=== PATIENT | female | born 1980 | race Caucasian/White ===

== ENCOUNTER 2018-04-06 07:32 | Outpatient (CLI) | payer OTHER ==
[2018-04-06] MEDS ORDERED: IOVERSOL 320 50 ML VIAL ONE (07:45)
[2018-04-06] MEDS ORDERED: IOVERSOL 320 100 ML VIAL IVP ONE ×2 (07:45→09:23)
[2018-04-06] MEDS ORDERED: IOVERSOL 320 50 ML VIAL PO ONE (09:23)
--- NOTE | 2018-04-06 13:37 | CT Report ---
Reason: RECTAL MASS Procedure Date: 04/06/2018 Accession Number: [id number] / [id number] Procedure: CT - Abdomen/Pelvis W/ CPT Code: FULL RESULT: EXAM: CT ABDOMEN AND PELVIS EXAM DATE: 04/06/2018 09:04 AM. CLINICAL HISTORY: Rectal mass. COMPARISONS: None. TECHNIQUE: Routine helical CT imaging was performed through the abdomen and pelvis. IV contrast: OPTI 320 100mL. Enteric contrast: Yes. Reconstructions: Coronal and sagittal. In accordance with CT protocol optimization, one or more of the following dose reduction techniques were utilized for this exam: automated exposure control, adjustment of mA and/or KV based on patient size, or use of iterative reconstructive technique. FINDINGS: Lung Bases: CT chest dictated separately Liver: Normal. No masses. Gallbladder/Bile Ducts: Unremarkable. Spleen: Unremarkable Pancreas: Unremarkable Adrenal Glands: Unremarkable Right kidney: Normal. No stones. No masses or hydronephrosis. Left kidney: Lower pole scarring/volume loss with staghorn type calculus and adjacent stone filling the lower pole calyces and infundibulum measuring up to 2.1 cm, series 5 image 29. No additional kidney stones outside of lower pole. Mild pelvocaliectasis. No ureter dilation or ureter stone. Otherwise unremarkable. Peritoneal Cavity/Bowel: No bowel obstruction. No free fluid or free air. Appendix normal in appearance. No enteric contrast is seen in the distal sigmoid colon or rectum. Pelvic Organs: Rectal wall thickening and nodularity greatest posterior to the left involving mid to upper aspect of rectum. Mass extension into the mesorectal fat is seen associated with posterior rectal wall thickening, series 3 image 56 sagittal images 28-30. Abnormal soft tissue extends to the posterior margin of the mesorectal fascia with possible extension to involve presacral musculature, series 3 image 54. Nodularity/mass in the mesorectal space posterior on the left measures 3.1 x 2.1 x 1.9 cm, series 3 image 54 and sagittal image 29. Lymph nodes are seen in the pelvis including right internal iliac node 1.5 x 1.2 cm series 3 image 57. Vasculature: No aneurysms or other significant abnormality. Bones: No bone lesions suspicious for metastasis. No significant abnormality. Other: None. IMPRESSION: 1. Rectal wall nodularity. Margins of rectal mass are suboptimally delineated on current study without enteric contrast in the distal sigmoid colon and rectum. 2. Rectal wall nodularity with abnormal soft tissue mass extension posterior and to the left of rectum into the mesorectal space. Probable extension through mesorectal fascia is seen in this area with absence of a clear fascial/fat plane perirectal mass from presacral musculature. 3. Pelvic fiorella enlargement suspicious for neoplasm. No additional abdominal findings suspicious for hematogenous or intraperitoneal spread of neoplasm. 4. If indicated clinically, a more complete assessment of primary tumor and local mass extension could also be considered with rectal protocol enhanced and unenhanced pelvic MRI. 5. CT chest dictated separately. RADIA
--- NOTE | 2018-04-06 13:38 | CT Report ---
Reason: RECTAL MASS Procedure Date: 04/06/2018 Accession Number: [id number] / [id number] Procedure: CT - Chest W/ CPT Code: FULL RESULT: EXAM: CT CHEST EXAM DATE: 04/06/2018 09:04 AM. CLINICAL HISTORY: Rectal mass COMPARISONS: None. TECHNIQUE: Routine helical CT imaging was performed through the chest. IV contrast: 100 mL of Optiray 320. Reconstructions: Coronal and sagittal. Axial MIP lung nodule protocol reformats In accordance with CT protocol optimization, one or more of the following dose reduction techniques were utilized for this exam: automated exposure control, adjustment of mA and/or KV based on patient size, or use of iterative reconstructive technique. FINDINGS: Lungs/Pleura: No nodules, bronchial thickening, consolidation, or edema. Pulmonary vasculature is normal. No pericardial or pleural effusion. No pneumothorax. Mediastinum: Normal. No adenopathy or masses. The heart and great vessels are normal. Bones: Unremarkable. No bone lesion suspicious for metastasis. Visualized Abdomen: CT abdomen and pelvis dictated separately Other: None. IMPRESSION: 1. No finding suspicious for metastasis in the chest. 2. No acute abnormality seen. Exam as detailed above. CT abdomen and pelvis dictated separately. RADIA
== END 2018-04-06 07:33 | disposition home or self-care (01) ==
LOC: DI 07:32
PROVIDERS: ATTEND Internal Medicine Gastroenterology
DX: K62.89 Other specified diseases of anus and rectum (principal); R59.0 Localized enlarged lymph nodes
CPT/HCPCS: 71260; 74177; Q9967

== ENCOUNTER 2019-06-16 13:52 | Emergency (ER) | payer OTHER ==
--- NOTE | 2019-06-16 14:19 | ED Physician Documentation ---
PD HPI ABD PAIN - Stated complaint Stated Complaint: ABD PX - History obtained from History obtained from: Patient (This is a very pleasant 39-year-old woman who had stage III rectal cancer with adjuvant radiation and chemotherapy. On April 21 she had her ileostomy reversed and was doing very well. The surgery was done at [facility]. Today she developed wavelike crampy abdominal pain that is central and more to the left. She had a fairly normal bowel movement for her, noting that her bowel movements are usually loose since the surgery, at 3 AM. She is not nauseous.) Review of Systems Ten Systems: 10 systems reviewed and negative Constitutional: denies: Fever, Chills Cardiac: denies: Chest pain / pressure, Palpitations Respiratory: denies: Dyspnea, Cough GI: reports: Abdominal Pain. denies: Abdominal Swelling, Nausea PD PAST MEDICAL HISTORY - Past Medical History Past Medical History: Yes GI: Other (Rectal cancer) - Past Surgical History Past Surgical History: Yes General: Other (Rectal cancer with ileostomy and subsequent reversal) - Present Medications Home Medications: Ambulatory Orders Medication Instructions Recorded Confirmed DULoxetine [Cymbalta] 40 mg PO DAILY 06/16/19 06/16/19 Lactulose [Constulose] 10 gm PO TID #150 ml 06/16/19 Oxycodone HCl 5 mg PO Q4H PRN #100 ml 06/16/19 - Allergies Allergies/Adverse Reactions: Allergies Allergy/AdvReac Type Severity Reaction Status Date / Time No Known Drug Allergies Allergy Verified 06/16/19 14:16 - Living Situation Living Situation: reports: With spouse/s.o. - Social History Does the pt smoke?: No - Family History Family history: reports: Non contributory PD ED PE NORMAL - Vitals Vital signs reviewed: Yes - General General: Alert and oriented X 3, No acute distress - HEENT HEENT: PERRL, EOMI, Dentition benign - Neck Neck: Supple, no meningeal sign, No bony TTP - Cardiac Cardiac: RRR, No murmur - Respiratory Respiratory: No respiratory distress, Clear bilaterally - Abdomen Abdomen: Normal bowel sounds, Soft, Non tender - Back Back: No CVA TTP, No spinal TTP - Extremities Extremities: No edema, No calf tenderness / cord - Neuro Neuro: Alert and oriented X 3, Normal speech - Psych Psych: Normal mood, Normal affect Results - Vitals Vitals: Vital Signs - 24 hr 06/16/19 06/16/19 06/16/19 14:17 14:22 16:22 Temperature 37.1 C Heart Rate 111 H 110 H 85 Respiratory 18 16 16 Rate Blood Pressure 140/88 H 138/74 H 129/74 O2 Saturation 97 100 100 06/16/19 16:50 Temperature 37.1 C Heart Rate 99 Respiratory 16 Rate Blood Pressure 136/87 H O2 Saturation 97 Oxygen O2 Source Room air - Labs Labs: Laboratory Tests 06/16/19 06/16/19 06/16/19 14:20 14:30 14:30 WBC 5.9 RBC 4.48 Hgb 13.8 Hct 41.1 MCV 91.7 MCH 30.8 MCHC 33.6 RDW 13.5 Plt Count 315 MPV 10.0 Neut # (Auto) 4.5 Lymph # (Auto) 0.6 L [place] # (Auto) 0.6 Eos # (Auto) 0.2 Baso # (Auto) 0.0 Absolute Nucleated RBC 0.00 Nucleated RBC % 0.0 Sodium 138 Potassium 3.9 Chloride 103 Carbon Dioxide 23 Anion Gap 12.0 BUN 11 Creatinine 0.5 Estimated GFR (MDRD) 137 Glucose 100 Calcium 9.6 Total Bilirubin 0.7 AST 18 ALT 17 Alkaline Phosphatase 126 H Total Protein 7.3 Albumin 4.5 Globulin 2.8 Albumin/Globulin Ratio 1.6 Lipase 24 Urine Color YELLOW Urine Clarity SL. CLOUDY Urine pH 7.5 Ur Specific [place] 1.020 Urine Protein TRACE Urine Glucose (UA) NEGATIVE Urine Ketones NEGATIVE Urine Occult Blood TRACE-INTA Urine Nitrite NEGATIVE Urine Bilirubin NEGATIVE Urine Urobilinogen 0.2 (NORMAL) Ur Leukocyte Esterase SMALL H Urine RBC 0-5 Urine WBC >25 H Ur Squamous Epith Cells RARE Squamous Urine Bacteria Rare Ur Microscopic Review INDICATED Urine Culture Comments INDICATED Urine HCG, Qual NEGATIVE - Rads (name of study) Ct A/P Radiology: EMP read contemporaneously (Rectal surgery and anastomosis with mildly dilated small bowel suspicious for a low-grade partial distal small bowel obstruction, mild constipation and stool, trace free fluid.) PD MEDICAL DECISION MAKING - ED course ED course: 39-year-old woman status post ileostomy reversal presents with acute abdominal pain. Labs look fine, CT results as shown with probably a low-grade distal partial small bowel obstruction. Discussed with patient recommended hospitalization. She very much wanted to go home. We settled on close watchful waiting at home with a clear liquid diet and return quickly if worsening or not improving. Departure - Departure Disposition: 01 Home, Self Care Clinical Impression: Small bowel obstruction Condition: Good Record reviewed to determine appropriate education?: Yes Instructions: Ileus Prescriptions: Lactulose [Constulose] 10 gm PO TID #150 ml Oxycodone HCl 5 mg PO Q4H PRN #100 ml PRN Reason: Pain Comments: As discussed, it looks like you have an early/partial mild bowel obstruction. You can have sips of clear fluid, making sure not to take much at any time. Return if you develop nausea. It is important to keep your bowels loose and regular so I am also prescribing a laxative for the next few days. Return in 24 hours if not improving, anytime if you develop nausea or vomiting, fevers, or other new or worsening symptoms. It would be hunter to follow-up with your surgeon in follow-up as well.
[2019-06-16] MEDS ORDERED: IOVERSOL 320 100 ML VIAL IVP ONE (14:30)
[2019-06-16] MEDS ORDERED: IOVERSOL 320 50 ML VIAL ONE (14:30)
[2019-06-16 14:33] LABS: BILIRUBIN,URINE NEGATIVE (NEGATIVE); GLUCOSE, URINE (UA) NEGATIVE (NEGATIVE); KETONES,URINE (UA) NEGATIVE (NEGATIVE); LEUKOCYTE ESTERASE, URINE SMALL (NEGATIVE); NITRITE,URINE NEGATIVE (NEGATIVE); OCCULT BLOOD,URINE TRACE-INTA (NEGATIVE); PH,URINE 7.5 PH (5.0-7.5); PROTEIN,URINE TRACE mg/dL (NEGATIVE); UROBILINOGEN,URINE 0.2 (NORMAL) E.U./dL (NORMAL)
[2019-06-16] MEDS: SODIUM CHLORIDE 0.9% 1,000 ML IV ONE (14:33)
[2019-06-16] MEDS: ONDANSETRON 4 MG/2 ML VIAL IVP STA (14:33)
[2019-06-16] MEDS: HYDROmorphone 1 MG/ML CARPUJECT IVP STA ×2 (14:33→17:34)
[2019-06-16 14:36] LABS: CLARITY,URINE SL. CLOUDY (CLEAR); HCG UR QUAL NEGATIVE
[2019-06-16 14:46] LABS: BACTERIA,URINE Rare /HPF (None Seen); RBC,URINE 0-5 /HPF (0-5); SQUAMOUS EPITHELIAL CELL,UR RARE Squamous (<= Few)
[2019-06-16 14:55] LABS: BASOPHILS % (AUTO) 0.5 %; EOSINOPHILS # (AUTO) 0.2 10^3/uL (0.0-0.7); EOSINOPHILS % (AUTO) 3.2 %; HGB - HEMOGLOBIN 13.8 g/dL (12.0-16.0); LYMPHOCYTES # (AUTO) 0.6 10^3/uL (1.5-3.5); LYMPHOCYTES % (AUTO) 10.2 %; MEAN CORPUSCULAR HEMOGLOBIN 30.8 pg (27.0-31.0); MEAN CORPUSCULAR HGB CONC 33.6 g/dL (32.0-36.0); MEAN CORPUSCULAR VOLUME 91.7 fL (81.0-99.0); MONOCYTES # (AUTO) 0.6 10^3/uL (0.0-1.0); MONOCYTES % (AUTO) 9.4 %; NEUTROPHILS # (AUTO) 4.5 10^3/uL (1.5-6.6); NEUTROPHILS % (AUTO) 76.4 %; PLT - PLATELET COUNT 315 10^3/uL (130-450); RED BLOOD COUNT 4.48 10^6/uL (4.20-5.40); RED CELL DISTRIBUTION WIDTH 13.5 % (12.0-15.0); WHITE BLOOD COUNT 5.9 x10^3/uL (4.8-10.8)
[2019-06-16 15:08] LABS: ALBUMIN 4.5 g/dL (3.2-5.5); ALBUMIN/GLOBULIN RATIO 1.6 (1.0-2.2); BILIRUBIN,TOTAL 0.7 mg/dL (0.2-1.0); CALCIUM 9.6 mg/dL (8.5-10.3); CREATININE 0.5 mg/dL (0.4-1.0); TOTAL PROTEIN 7.3 g/dL (6.7-8.2)
[2019-06-16] MEDS: IOVERSOL 320 100 ML VIAL IVP ONE (15:51)
[2019-06-16] MEDS: IOVERSOL 320 50 ML VIAL PO ONE (15:52)
--- NOTE | 2019-06-16 17:10 | CT Report ---
Reason: IV and PO, post op abd pain Procedure Date: 06/16/2019 Accession Number: [id number] / [id number] Procedure: CT - Abdomen/Pelvis W CPT Code: Final Report FULL RESULT: EXAM: CT ABDOMEN AND PELVIS EXAM DATE: 06/16/2019 03:48 PM. CLINICAL HISTORY: Rectal cancer. Recent ileostomy reversal. Left lower quadrant abdominal pain. COMPARISONS: 04/06/2018. TECHNIQUE: Routine helical CT imaging was performed through the abdomen and pelvis. IV contrast: 100 cc Optiray 320 IV. Enteric contrast: Yes. Reconstructions: Coronal and sagittal. In accordance with CT protocol optimization, one or more of the following dose reduction techniques were utilized for this exam: automated exposure control, adjustment of mA and/or KV based on patient size, or use of iterative reconstructive technique. FINDINGS: Lung Bases: Unremarkable. Liver: There is a hypodense lesion in the central aspect of segment 4 of the liver measuring 15 mm in diameter which is unchanged in size. There is no new liver lesion. No intrahepatic biliary dilation. Gallbladder/Bile Ducts: Unremarkable. Spleen: Normal. Pancreas: Normal. Adrenal Glands: Normal. Kidneys: There are parenchymal calcifications in the inferior pole of the left kidney with localized volume loss. There is mild pelviectasis of the left kidney. Right kidney appears unremarkable. No visualized obstructing ureteral stones. Peritoneal Cavity/Bowel: There is oral contrast within the stomach and small bowel. There are loops of small bowel which are dilated and measure up to 30 mm in diameter. There are findings of surgery near the terminal ileum. There is an anastomosis at the rectum. There is fecalization of distal small bowel contents. There is fat stranding and increased fat attenuation posterior to the rectum. No abscess or free air. There is trace free fluid in the left lower quadrant. Pelvic Organs: Urinary bladder is unremarkable. Uterus normal in size. Ovaries not well visualized. There is increased stool present within the colon without colonic dilation. Vasculature: No aneurysms or other significant abnormality. Bones: No significant abnormality. Other: None. IMPRESSION: 1. New findings of rectal surgery and anastomosis. New pre-sacrococcygeal stranding which may represent postoperative change of granulation tissue, old hematoma, fibrosis, not excluding residual or recurrent neoplasm. 2. Mildly dilated small bowel with fecalization of distal ileum. Suspicious for a low-grade partial distal small bowel obstruction. 3. Mild constipation and increased colonic stool. 4. Trace free fluid in the left abdomen. 5. Chronic findings of multiple parenchymal calcifications in the left kidney. RADIA
[2019-06-16] MEDS: DEXTROSE 5%-0.9% NACL 1,000 ML IV ONE (17:35)
[2019-06-16 18:14] VITALS: BP 126/78
== END 2019-06-16 18:14 | disposition home or self-care (01) ==
LOC: ED 13:52
DX: K56.600 Partial intestinal obstruction, unspecified as to cause (principal); C20 Malignant neoplasm of rectum; Z98.0 Intestinal bypass and anastomosis status
CPT/HCPCS: 36415; 74177; 80053; 81001; 81025; 83690; 85025; 87086; 96361; 96374; 96376; 99284; J1170; Q9967; 81003

== ENCOUNTER 2019-07-07 18:53 | Emergency (ER) | payer OTHER ==
[2019-07-07 19:24] LABS: BASOPHILS % (AUTO) 0.3 %; EOSINOPHILS # (AUTO) 0.2 10^3/uL (0.0-0.7); EOSINOPHILS % (AUTO) 2.3 %; HGB - HEMOGLOBIN 13.6 g/dL (12.0-16.0); LYMPHOCYTES # (AUTO) 1.3 10^3/uL (1.5-3.5); LYMPHOCYTES % (AUTO) 16.3 %; MEAN CORPUSCULAR HEMOGLOBIN 29.8 pg (27.0-31.0); MEAN CORPUSCULAR HGB CONC 33.4 g/dL (32.0-36.0); MEAN CORPUSCULAR VOLUME 89.3 fL (81.0-99.0); MEAN PLATELET VOLUME 9.9 fL (7.9-10.8); MONOCYTES # (AUTO) 0.6 10^3/uL (0.0-1.0); MONOCYTES % (AUTO) 7.5 %; NEUTROPHILS # (AUTO) 5.7 10^3/uL (1.5-6.6); NEUTROPHILS % (AUTO) 73.2 %; PLT - PLATELET COUNT 338 10^3/uL (130-450); RED BLOOD COUNT 4.56 10^6/uL (4.20-5.40); RED CELL DISTRIBUTION WIDTH 13.4 % (12.0-15.0); WHITE BLOOD COUNT 7.8 x10^3/uL (4.8-10.8)
[2019-07-07 19:27] LABS: ALBUMIN 4.5 g/dL (3.2-5.5); ALBUMIN/GLOBULIN RATIO 1.3 (1.0-2.2); BILIRUBIN,TOTAL 0.6 mg/dL (0.2-1.0); CALCIUM 10.3 mg/dL (8.5-10.3); CREATININE 0.5 mg/dL (0.4-1.0)
--- NOTE | 2019-07-07 19:27 | ED Physician Documentation ---
PD HPI ABD PAIN - Stated complaint Stated Complaint: ABD PX - Chief complaint Chief Complaint: Abd Pain - History obtained from History obtained from: Patient (This is a very pleasant young woman with history of stage III rectal cancer with adjuvant radiation and chemotherapy. In March of this year she had her ileostomy reversed at [place]. Today she developed abdominal pain, she had a very small bowel movement this morning. She was seen for similar issue a few weeks ago and was diagnosed with a partial small bowel obstruction. She was sent home on liquid diet and did well and the pain was gone the next day. This is similar although the pain is in a slightly different Area. She has not been vomiting.) Review of Systems Ten Systems: 10 systems reviewed and negative Constitutional: denies: Fever, Chills Throat: denies: Dental pain / toothache, Sore throat Cardiac: denies: Chest pain / pressure, Palpitations Respiratory: denies: Dyspnea, Cough GI: reports: Abdominal Pain, Constipation. 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 Illeostomy reversal - Past Surgical History Past Surgical History: Yes General: Other - Present Medications Home Medications: Ambulatory Orders Medication Instructions Recorded Confirmed DULoxetine [Cymbalta] 40 mg PO DAILY 06/16/19 06/16/19 Lactulose [Constulose] 10 gm PO TID #150 ml 06/16/19 Oxycodone HCl 5 mg PO Q4H PRN #100 ml 06/16/19 Lactulose [Generlac] 10 gm PO QID PRN #150 ml 07/07/19 oxyCODONE [Roxicodone] 5 mg PO Q4-6H PRN #15 tablet 07/07/19 - Allergies Allergies/Adverse Reactions: Allergies Allergy/AdvReac Type Severity Reaction Status Date / Time No Known Drug Allergies Allergy Verified 07/07/19 18:56 - Social History Does the pt smoke?: No Smoking Status: Never smoker Does the pt drink ETOH?: No Does the pt have substance abuse?: No PD ED PE NORMAL - Vitals Vital signs reviewed: Yes - General General: Alert and oriented X 3, No acute distress - HEENT HEENT: PERRL, EOMI - Neck Neck: Supple, no meningeal sign, No bony TTP - Cardiac Cardiac: RRR, No murmur - Respiratory Respiratory: No respiratory distress, Clear bilaterally - Abdomen Abdomen: Other (Diminished but not quite absent bowel tones, mild diffuse tenderness without surgical signs) - Back Back: No CVA TTP, No spinal TTP - Derm Derm: Normal color, Warm and dry - Extremities Extremities: No edema, No calf tenderness / cord - Neuro Neuro: Alert and oriented X 3, Normal speech Results - Vitals Vitals: Vital Signs - 24 hr 07/07/19 07/07/19 18:56 20:59 Temperature 36.4 C L Heart Rate 114 H 100 Respiratory 15 14 Rate Blood Pressure 130/94 H 133/85 H O2 Saturation 100 96 Oxygen O2 Source Room air - Labs Labs: Laboratory Tests 07/07/19 07/07/19 07/07/19 19:08 19:08 19:23 WBC 7.8 RBC 4.56 Hgb 13.6 Hct 40.7 MCV 89.3 MCH 29.8 MCHC 33.4 RDW 13.4 Plt Count 338 MPV 9.9 Neut # (Auto) 5.7 Lymph # (Auto) 1.3 L [place] # (Auto) 0.6 Eos # (Auto) 0.2 Baso # (Auto) 0.0 Absolute Nucleated RBC 0.00 Nucleated RBC % 0.0 Sodium 137 Potassium 3.8 Chloride 102 Carbon Dioxide 24 Anion Gap 11.0 BUN 13 Creatinine 0.5 Estimated GFR (MDRD) 137 Glucose 104 H Calcium 10.3 Total Bilirubin 0.6 AST 18 ALT 23 Alkaline Phosphatase 135 H Total Protein 8.0 Albumin 4.5 Globulin 3.5 Albumin/Globulin Ratio 1.3 Lipase 22 Urine Color YELLOW Urine Clarity CLEAR Urine pH 7.5 Ur Specific [place] 1.010 Urine Protein NEGATIVE Urine Glucose (UA) NEGATIVE Urine Ketones NEGATIVE Urine Occult Blood SMALL H Urine Nitrite NEGATIVE Urine Bilirubin NEGATIVE Urine Urobilinogen 0.2 (NORMAL) Ur Leukocyte Esterase SMALL H Urine RBC 0-5 Urine WBC 4-5 Ur Squamous Epith Cells NONE SEEN Urine Bacteria Few Ur Microscopic Review INDICATED Urine Culture Comments INDICATED Urine HCG, Qual NEGATIVE PD MEDICAL DECISION MAKING - ED course ED course: Very pleasant 39-year-old woman who had a partial small bowel obstruction a few weeks ago and now presents with similar symptoms. Given the recurrent nature she was not imaged. After some pain medications and IV fluids she was feeling much better and was able to keep down a p.o. challenge. She never developed any nausea. Departure - Departure Disposition: 01 Home, Self Care Clinical Impression: Small bowel obstruction Condition: Good Record reviewed to determine appropriate education?: Yes Instructions: Obstruction Sm Bowel Prescriptions: Lactulose [Generlac] 10 gm PO QID PRN #150 ml PRN Reason: Constipation oxyCODONE [Roxicodone] 5 mg PO Q4-6H PRN #15 tablet PRN Reason: Pain Comments: As discussed, it is now concerning that you may be developing recurrent ileus is or partial small bowel obstructions after your prior surgery. I would call your surgeon and let him or her know that this is becoming an issue. Return anytime if worsening or if you develop nausea. Liquid diet for the next day, after that you can slowly return to a normal diet as tolerated.
[2019-07-07] MEDS ORDERED: HYDROmorphone 1 MG/ML CARPUJECT IVP STA (19:28)
[2019-07-07] MEDS ORDERED: SODIUM CHLORIDE 0.9% 1,000 ML IV ONE (19:28)
[2019-07-07] MEDS ORDERED: METOCLOPRAMIDE 10 MG/2 ML VIAL IVP STA (19:28)
[2019-07-07 19:40] LABS: BILIRUBIN,URINE NEGATIVE (NEGATIVE); GLUCOSE, URINE (UA) NEGATIVE (NEGATIVE); KETONES,URINE (UA) NEGATIVE (NEGATIVE); LEUKOCYTE ESTERASE, URINE SMALL (NEGATIVE); NITRITE,URINE NEGATIVE (NEGATIVE); OCCULT BLOOD,URINE SMALL (NEGATIVE); PH,URINE 7.5 PH (5.0-7.5); PROTEIN,URINE NEGATIVE (NEGATIVE); UROBILINOGEN,URINE 0.2 (NORMAL) E.U./dL (NORMAL)
[2019-07-07 19:41] LABS: CLARITY,URINE CLEAR (CLEAR)
[2019-07-07 19:42] LABS: HCG UR QUAL NEGATIVE
[2019-07-07 19:50] LABS: BACTERIA,URINE Few /HPF (None Seen); RBC,URINE 0-5 /HPF (0-5); SQUAMOUS EPITHELIAL CELL,UR NONE SEEN (<= Few)
[2019-07-07] MEDS ORDERED: oxyCODONE/ACET 5/325 Prepack 4 PO STA (21:26)
[2019-07-07 21:56] VITALS: BP 128/81
== END 2019-07-07 21:59 | disposition home or self-care (01) ==
LOC: ED 18:53
DX: K56.609 Unspecified intestinal obstruction, unspecified as to partial versus complete obstruction (principal); Z85.048 Personal history of other malignant neoplasm of rectum, rectosigmoid junction, and anus
CPT/HCPCS: 36415; 80053; 81001; 81025; 83690; 85025; 87086; 96361; 96374; 99283; 99284; J1170; J2765; 81003

== ENCOUNTER 2019-07-14 06:58 | Observation (INO) | payer OTHER ==
[2019-07-14] MEDS ORDERED: KETOROLAC 15 MG/ML VIAL IVP STA (07:32)
[2019-07-14] MEDS ORDERED: ONDANSETRON 4 MG/2 ML VIAL IVP STA (07:32)
[2019-07-14] MEDS ORDERED: HYDROmorphone 1 MG/ML CARPUJECT IVP STA ×2 (07:32→10:32)
[2019-07-14] MEDS ORDERED: LACTATED RINGERS 1,000 ML IV STA ×2 (07:32→12:12)
[2019-07-14] MEDS ORDERED: IOVERSOL 320 100 ML VIAL IVP ONE ×2 (07:44→11:09)
[2019-07-14] MEDS ORDERED: IOVERSOL 320 50 ML VIAL ONE (07:44)
[2019-07-14 08:03] LABS: BASOPHILS % (AUTO) 0.3 %; EOSINOPHILS # (AUTO) 0.1 10^3/uL (0.0-0.7); EOSINOPHILS % (AUTO) 2.2 %; HGB - HEMOGLOBIN 14.4 g/dL (12.0-16.0); LYMPHOCYTES # (AUTO) 0.8 10^3/uL (1.5-3.5); LYMPHOCYTES % (AUTO) 12.7 %; MEAN CORPUSCULAR HEMOGLOBIN 30.7 pg (27.0-31.0); MEAN CORPUSCULAR HGB CONC 33.9 g/dL (32.0-36.0); MEAN CORPUSCULAR VOLUME 90.6 fL (81.0-99.0); MEAN PLATELET VOLUME 10.1 fL (7.9-10.8); MONOCYTES # (AUTO) 0.5 10^3/uL (0.0-1.0); MONOCYTES % (AUTO) 7.7 %; NEUTROPHILS % (AUTO) 76.8 %; PLT - PLATELET COUNT 355 10^3/uL (130-450); RED BLOOD COUNT 4.69 10^6/uL (4.20-5.40); RED CELL DISTRIBUTION WIDTH 13.4 % (12.0-15.0); WHITE BLOOD COUNT 6.5 x10^3/uL (4.8-10.8)
[2019-07-14 08:09] LABS: BILIRUBIN,URINE NEGATIVE (NEGATIVE); GLUCOSE, URINE (UA) NEGATIVE (NEGATIVE); KETONES,URINE (UA) NEGATIVE (NEGATIVE); LEUKOCYTE ESTERASE, URINE TRACE (NEGATIVE); NITRITE,URINE NEGATIVE (NEGATIVE); OCCULT BLOOD,URINE TRACE-INTA (NEGATIVE); PH,URINE 7.5 PH (5.0-7.5); PROTEIN,URINE NEGATIVE (NEGATIVE); UROBILINOGEN,URINE 0.2 (NORMAL) E.U./dL (NORMAL)
[2019-07-14 08:11] LABS: CLARITY,URINE CLEAR (CLEAR); HCG UR QUAL NEGATIVE
[2019-07-14 08:13] LABS: ALBUMIN 4.6 g/dL (3.2-5.5); ALBUMIN/GLOBULIN RATIO 1.4 (1.0-2.2); BILIRUBIN,TOTAL 0.4 mg/dL (0.2-1.0); CALCIUM 10.5 mg/dL (8.5-10.3); CREATININE 0.6 mg/dL (0.4-1.0); MAGNESIUM 1.9 mg/dL (1.7-2.8)
[2019-07-14 08:33] LABS: EPITHELIAL CELLS,UR RARE Transitional /HPF (<= Few); RBC,URINE 0-5 /HPF (0-5); SQUAMOUS EPITHELIAL CELL,UR RARE Squamous (<= Few)
[2019-07-14 08:34] LABS: AMORPHOUS SEDIMENT,UR Few /LPF; BACTERIA,URINE Few /HPF (None Seen)
--- NOTE | 2019-07-14 10:11 | CT Report ---
Reason: recurrent abd pain and distension; recent SBO Procedure Date: 07/14/2019 Accession Number: [id number] / [id number] Procedure: CT - Abdomen/Pelvis W CPT Code: Final Report FULL RESULT: EXAM: CT ABDOMEN AND PELVIS EXAM DATE: 07/14/2019 09:23 AM. CLINICAL HISTORY: Recurrent abd pain and distension; recent SBO. History of rectal cancer. Ileostomy reversal 04/21/2019 COMPARISONS: ABDOMEN/PELVIS W 06/16/2019 3:40 PM ABDOMEN/PELVIS W/ 04/06/2018 9:04 AM. TECHNIQUE: Routine helical CT imaging was performed through the abdomen and pelvis. IV contrast: 100 mL OPTIRAY 320. Enteric contrast: Yes. Reconstructions: Coronal and sagittal. In accordance with CT protocol optimization, one or more of the following dose reduction techniques were utilized for this exam: automated exposure control, adjustment of mA and/or KV based on patient size, or use of iterative reconstructive technique. FINDINGS: Lung Bases: Unremarkable. Liver: 1.8 x 1.0 x 1.2 cm segment 4A low attenuation left liver lobe lesion adjacent to middle hepatic vein, previously 1.6 x 1.2 x 1.3 cm on 04/06/2018. No significant interval change. Gallbladder/Bile Ducts: Unremarkable. Spleen: Normal. Pancreas: Normal. Adrenal Glands: Normal. Kidneys: Chronic left lower renal calcification measuring up to 1.2 x 2.4 cm with adjacent scarring. Normal right kidney. Peritoneal Cavity/Bowel: Rectal anastomosis compatible with prior low anterior resection. Stable presacral density, probably from postoperative changes. Prior ileostomy with reversal. Dilated mid to distal small bowel loops with diameter reaching 3.1 cm, containing multiple air-fluid levels. Transition point is at the distal ileal anastomosis. The appendix is well visualized and normal. Pelvic Organs: Normal. The bladder and visualized pelvic organs are within normal limits. Vasculature: No aneurysms or other significant abnormality. Bones: No significant abnormality. Other: None. IMPRESSION: 1. Distal small bowel obstruction with transition point at distal ileal anastomosis. 2. Chronic, probable focal staghorn calcifications in left lower kidney with parenchymal scarring. No hydronephrosis. 3. Stable nonspecific segment 4A liver lesion. Question hemangioma. No new liver lesion. RADIA
[2019-07-14] MEDS ORDERED: IOVERSOL 320 50 ML VIAL PO ONE (11:09)
[2019-07-14] MEDS ORDERED: PROCHLORPERAZINE 10 MG/2 ML VIAL IVP PRN (11:39)
[2019-07-14] MEDS ORDERED: ONDANSETRON 4 MG/2 ML VIAL IVP PRN (11:39)
--- NOTE | 2019-07-14 11:41 | HISTORY & PHYSICAL EXAMINATION ---
Chief Complaint - Chief Complaint Chief Complaint: Abdominal pain History of Present Illness - Admitted From Admitted From:: Home - History Obtained From Records Reviewed: Yes History obtained from: Patient, ER Physician, EMR - History of Present Illness HPI Comment/Other: This is a 39-year-old female with a past medical history significant for stage III rectal adenocarcinoma who is status post resection, radiation, chemotherapy that was diagnosed in March 2018. She received her oncologic care at [facility] but underwent anterior resection and ilesostomy at [facility] in [place]. She had reversal of her ileostomy in March of this year. She presents today with abdominal pain that began yesterday evening at around 11 PM. She states that she has had 2 prior episodes of bowel obstructions that were treated on an outpatient basis with quick resolution. She states that those times, she would take pain medication and her pain would resolve. She reports this time she took oxycodone at home but her pain persisted. It was quite severe and located over the left upper quadrant. She did not have any nausea or vomiting. She is not passing gas. She reports her last bowel movement was yesterday evening at 8 PM. She denies any chest pain, dyspnea, fevers, chills. She reports she has been doing well prior to yesterday evening. 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 In the emergency department, she underwent a CT of the abdomen and pelvis which showed an obstruction with transition point at the anastomosis site. Given these findings, medicine was consulted for admission History - Past Medical History Cardiovascular: reports: None Respiratory: reports: None Neuro: reports: None Endocrine/Autoimmune: reports: None GI: reports: Other (Rectal cancer s/p resection with ileostomy followed by reversal of ileostomy. Also received chemotherapy and radiation.) GLASS FURNACE TENDER: reports: None HEENT: reports: None Derm: reports: None - Past Surgical History General: reports: Bowel surgery (Lower anterior resection with ileostomy in 2018 followed by ileostomy closure in March 2019.) /GLASS FURNACE TENDER: reports: section - Family & Social History Family History Comment/Other: She reports her mother has hypertension. No history of cancer. Living arrangement: At home Living Situation: With family Social History Notes: Lives at home with her and 3 children. 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 She admittedly would be on for the past 2 years after previously living in [place]. She does not smoke. She does not drink any alcohol since her cancer diagnosis. Meds/Allgy - Home Medications Home Medications: Ambulatory Orders Medication Instructions Recorded Confirmed oxyCODONE [Roxicodone] 5 mg PO Q4-6H PRN #15 tablet 07/07/19 07/14/19 Duloxetine HCl 60 mg PO DAILY 07/14/19 07/14/19 Mirtazapine [Remeron] 15 mg PO HS 07/14/19 07/14/19 - Allergies Allergies/Adverse Reactions: Allergies Allergy/AdvReac Type Severity Reaction Status Date / Time No Known Drug Allergies Allergy Verified 07/14/19 07:13 Review of Systems - Constitutional Constitutional: denies: Fatigue, Fever, Chills, Malaise, Weakness, Poor appetite, Weight loss - Ears, Nose & Throat Ears, Nose & Throat: denies: Nasal congestion, Sore throat - Cardiovascular Cariovascular: denies: Chest pain, Lightheadedness, Exertional dyspnea, Decr. exercise tolerance - Respiratory Respiratory: denies: Cough, SOB at rest, SOB with exertion - Gastrointestinal Gastrointestinal: reports: Abdominal pain, Constipation, Change in bowel habits. denies: Diarrhea, Black stools, Bloody stools, Nausea, Vomiting - Genitourinary Genitourinary: denies: Dysuria, Frequency, Urgency, Hematuria - Musculoskeletal Musculoskeletal: denies: Muscle pain, Limited range of motion - Integumentary Integumentary: denies: Rash - Neurological Neurological: reports: Numbness. denies: General weakness, Focal weakness, Dizziness - Hematologic/Lymphatic Hematologic/Lymphatic: denies: Bleeding tendencies - All Other Systems All Other Systems: reports: Reviewed and negative Prior Level of Functionality: She is independent with ADL's. Exam - Vital Signs Reviewed Vital Signs: Yes Vital Signs: Vital Signs x48h Temp Pulse Resp BP Pulse Ox 07/14/19 10:46 36.8 C 105 H 16 125/78 99 07/14/19 09:17 36.8 C 109 H 16 124/83 H 98 07/14/19 07:13 36.7 C 123 H 20 127/74 100 - Physical Exam General Appearance: positive: Alert, Mild distress Eyes Bilateral: positive: Normal inspection, Conjunctivae nml ENT: positive: ENT inspection nml Neck: positive: Nml inspection Respiratory: positive: No respiratory distress. negative: Wheezes, Rales, Rhonchi Cardiovascular: positive: No murmur, Tachycardia. negative: Bradycardia, Systolic murmur Abdomen: positive: No distention, Tenderness (She is most tender in the left upper and left lower quadrants.), Abnml bowel sounds (Hypoactive), Other (Scar from prior ileostomy over the right lower quadrant appears well-healed without any erythema or tenderness). negative: Non-tender, Guarding, Rebound Skin: positive: Warm, Dry Extremities: positive: Full ROM, No pedal edema Neurologic/Psychiatric: positive: Oriented x3, Motor nml. negative: Disoriented to person, Disoriented to place, Disoriented to time Conclusion/Plan - Problem List (1) Small bowel obstruction Conclusion/Plan: She has evidence of small bowel obstruction on CT with transition point at the distal ileal anastomosis. Given she has not had any vomiting while she is here, we will hold off on NG tube placement at this time. We will treat her pain with morphine as needed. Zofran and Compazine as needed for nausea. Continue her on IV lactated Ringer's. NPO for time being. If she has vomiting and we will need to place NG tube. General surgery has been consulted and appreciate their recommendations. Will order gastrografin challenge. (2) History of rectal cancer Conclusion/Plan: She has history of rectal cancer status post resection and ileostomy followed by ileostomy reversal. Diagnosed in March 2017. Treated with radiation and chemotherapy. She continues to follow with oncology at [facility]. - Lab Results Lab results reviewed: Yes Félix Bones: 07/14/19 07:48 07/14/19 07:48 - Diagnostic Imaging Results Diagnostic Imaging Results: positive: Final report reviewed Core Measures - Anticipated LOS I expect patient to be DC'd or transferred within 96 hours.: Yes - Issues Hospital Issues and Management Plan: 39-year-old female with history of rectal cancer status post resection in the past with ileostomy and reversal who now has obstruction at the site of the anastomosis. Will admit for pain control, IV fluids, general surgery consult. - DVT/VTE - Prophylaxis VTE/DVT Device ordered at admit?: Yes VTE/DVT Prophylaxis med ordered at admit?: Yes
--- NOTE | 2019-07-14 12:49 | PHARMACY PROGRESS NOTE ---
- Best Possible Medication History Admit Date and Time: 07/14/19 1139 Processed by: Pharmacy Medication History completed: Yes Secondary Source(s): Pharmacy records, Insurance records As the person ultimately responsible for medication therapy, providers are able to order a medication from an existing home medication list in [facility] via the "Reconcile Routine" prior to Confirmation of that medication by desktop support specialist. Such practice is discouraged except when the physician, in their clinical judgment, deems that a medical need exists for a medication without regard to previous use.
[2019-07-14] MEDS: LACTATED RINGERS 1,000 ML IV SCH ×2 (13:32→23:56)
[2019-07-14] MEDS: SODIUM CHLORIDE FLUSH 0.9% 10 ML SYRINGE IVP PRN ×2 (13:32→14:19)
[2019-07-14] MEDS: MORPHINE 2 MG/ML CARPUJECT IVP PRN ×3 (14:15→20:04)
[2019-07-14] MEDS ORDERED: DIATR MEGLU/DIATRIZOATE SODIUM 120 ML BOTTLE PO ONE (14:16)
--- NOTE | 2019-07-14 15:03 | CONSULTATION NOTE ---
Referring Provider Name of Referring Provider:: Dr. Dominguez Consult Date: 07/14/19 Chief Complaint - Chief Complaint Chief Complaint: abd pain History of Present Illness - Admitted From Admitted From:: ER - History Obtained From Records Reviewed: old records in EMR History obtained from: pt, records Exam Limitations: none - History of Present Illness HPI Comment/Other: 39 yo female with hx of Stage 3 rectal adenocarcinoma, s/p multimodality therapy in 2018 including preop chemoradiation therapy and surgery, which was a low anterior resection and protective ileostomy in 07/2018 at [facility], followed by 6 more months of adjuvant chemotherapy, followed by closure of her ileostomy in 03/2019. Her initial surgery was complicated by early postop small bowel obstruction requiring readmission and an additional 6 day hospital stay before resolution with medical management. She did well following closure of her ileostomy until 06/15 when she had an ER visit for abd pain and CT showed evidence of a partial distal SBO which was managed as an outpatient with rapid resolution of sx the following day. A second ER visit 1 week ago occurred for t he same reason and was managed in a similar fashion with also rapid resolution until last night when her symptoms of LLQ abdominal pain, crampy in nature, recurred, more severe than prior episodes, prompting another ER visit and admission today after repeat CT abd/pelvis showing a higher grade distal SBO near or at site of prior ileostomy colosure. There has been no N/V, and her last bm was last night around 8pm and was normal; no bm's since. She normally moves her bowels several times daily; no melena, hematochezia, fever/chills, or recent wt loss. Neg FH GI tumors. She is thought to be HUEY. Surgical consultation was requested. Her only other abd surgery was a C/S. History - Past Medical History Cardiovascular: reports: None Respiratory: reports: None Neuro: reports: None Endocrine/Autoimmune: reports: None GI: reports: Other (colon cancer; see HPI) CERAMIC TILER: reports: None : reports: None HEENT: reports: None Psych: reports: Depression, Anxiety, Other (insomnia) Musculoskeletal: reports: None Derm: reports: None - Past Surgical History General: reports: Bowel surgery (low anterior resection with ileostomy 07/2018; ileostomy closure 03/2019), Colonoscopy /CERAMIC TILER: reports: section - Family & Social History Family History Comment/Other: Neg for GI tumors Living arrangement: At home Living Situation: With family Social History Notes: 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; 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 - Substance History Use: Uses substance without health or social issues: NONE Meds/Allgy - Home Medications Home Medications: Ambulatory Orders Medication Instructions Recorded Confirmed oxyCODONE [Roxicodone] 5 mg PO Q4-6H PRN #15 tablet 07/07/19 07/14/19 Duloxetine HCl 60 mg PO DAILY 07/14/19 07/14/19 Mirtazapine [Remeron] 15 mg PO HS 07/14/19 07/14/19 - Allergies Allergies/Adverse Reactions: Allergies Allergy/AdvReac Type Severity Reaction Status Date / Time No Known Drug Allergies Allergy Verified 07/14/19 07:13 Review of Systems - Constitutional Constitutional: denies: Weight loss - Gastrointestinal Gastrointestinal: reports: Abdominal pain, Change in bowel habits. denies: Rectal bleeding, Black stools, Bloody stools, Nausea, Vomiting, Bile emesis, Gerry blood emesis, Coffee grounds emesis, Reflux/heartburn - Hematologic/Lymphatic Hematologic/Lymphatic: denies: Anemia, Blood clots, Bleeding tendencies - All Other Systems All Other Systems: reports: Reviewed and negative (or covered in HPI/PMH) Exam - Vital Signs Reviewed Vital Signs: Yes Vital Signs: Vital Signs x48h Temp Pulse Pulse Resp BP BP Pulse Ox 07/14/19 13:38 37.0 C 101 H 20 127/87 H 98 07/14/19 12:00 98 16 108/67 99 07/14/19 10:46 36.8 C 105 H 16 125/78 99 07/14/19 09:17 36.8 C 109 H 16 124/83 H 98 07/14/19 07:13 36.7 C 123 H 20 127/74 100 - Physical Exam General Appearance: positive: Alert, Moderate distress (c/o abd pain) Eyes Bilateral: positive: Normal inspection ENT: positive: ENT inspection nml Neck: positive: Nml inspection, No JVD, Trachea midline. negative: Lymphadenopathy (R), Lymphadenopathy (L) Respiratory: positive: Chest non-tender, No respiratory distress, Breath sounds nml Cardiovascular: positive: Regular rate & rhythm, No murmur, No gallop Peripheral Pulses: positive: 2+ Abdomen: positive: No organomegaly, Tenderness (mild diffuse, maximal in LLQ), Abnml bowel sounds (tympanitic, with rushes and tinkles), Other (well healed RLQ and pfannensteil surgical scars). negative: Guarding, Rebound, Hepatomegaly, Splenomegaly, Mass Skin: positive: Color nml, No rash, Warm, Dry. negative: Cyanosis Extremities: positive: Non-tender, No pedal edema. negative: Calf tenderness Neurologic/Psychiatric: positive: Oriented x3 Conclusion/Plan - Diagnosis Diagnosis: SBO, partial, distal, high grade, likely due to adhesions and/or anastomotic stricture at ileostomy closure site. No evidence of acute surgical abdomen or complete obstruction at present. - Plan Plan: Agree with admission, NPO, NG insertion for N/V; IV fluids, analgesics, observation, medical management. Recommend gastrograffin challenge test. Will follow. Thanks, - Lab Results Lab results reviewed: Yes Fish Bones: 07/14/19 07:48 07/14/19 07:48 Other Lab Results: lipase nl - Diagnostic Imaging Results Diagnostic Imaging Results: positive: Final report reviewed, Read independently Diagnostic Imaging Results Comments: see HPI
--- NOTE | 2019-07-14 16:55 | ED Physician Documentation ---
PD HPI ABD PAIN - Stated complaint Stated Complaint: ABD PX - Chief complaint Chief Complaint: Abd Pain - History obtained from History obtained from: Patient - History of Present Illness Timing - onset: Last night Timing - duration: Hours (8) Timing - details: Abrupt onset, Still present Quality: Cramping, Aching, Fullness/distended, Pain Radiation: Chest, Lower back Improved by: Laying still Worsened by: Moving, Palpation Associated symptoms: Nausea, Loss of appetite. No: Fever, Vomiting, Diarrhea, Constipation (last BM was yesterday, normal), Near syncope / syncope Similar symptoms before: Diagnosis (similar 2 times previously, Dx as SBO and treated with clear liquids/pain meds/time, and improved - one was about a month ago and the other a week ago. Normal eating and BMs in the interval times.) Review of Systems Constitutional: denies: Fever, Chills, Myalgias Nose: denies: Rhinorrhea / runny nose, Congestion Throat: denies: Sore throat Cardiac: denies: Palpitations, Pedal edema, Calf pain Respiratory: denies: Cough GI: reports: Abdominal Pain, Abdominal Swelling, Nausea. denies: Vomiting, Constipation, Diarrhea, Bloody / black stool : denies: Dysuria, Frequency Musculoskeletal: denies: Neck pain, Back pain Neurologic: reports: Generalized weakness. denies: Focal weakness, Numbness, Near syncope PD PAST MEDICAL HISTORY - Past Medical History Cardiovascular: None Respiratory: None Neuro: None Endocrine/Autoimmune: None GI: Other (Rectal cancer s/p resection with ileostomy followed by reversal of ileostomy. Also received chemotherapy and radiation.) TUYERE FITTER: None : None HEENT: None Psych: Depression, Anxiety, Other (insomnia) Musculoskeletal: None Derm: None - Past Surgical History Past Surgical History: Yes General: Bowel surgery (Lower anterior resection with ileostomy in 2018 followed by ileostomy closure in March 2019.) /TUYERE FITTER: section - Present Medications Home Medications: Ambulatory Orders Medication Instructions Recorded Confirmed oxyCODONE [Roxicodone] 5 mg PO Q4-6H PRN #15 tablet 07/07/19 07/14/19 Duloxetine HCl 60 mg PO DAILY 07/14/19 07/14/19 Mirtazapine [Remeron] 15 mg PO HS 07/14/19 07/14/19 - Allergies Allergies/Adverse Reactions: Allergies Allergy/AdvReac Type Severity Reaction Status Date / Time No Known Drug Allergies Allergy Verified 07/14/19 07:13 - Social History Does the pt smoke?: No Smoking Status: Former smoker Does the pt drink ETOH?: No Does the pt have substance abuse?: No PD ED PE NORMAL - Vitals Vital signs reviewed: Yes - General General: Alert and oriented X 3, Well developed/nourished, Other (appears uncomfortable in pain.) - HEENT HEENT: Pharynx benign - Neck Neck: Supple, no meningeal sign, No adenopathy - Cardiac Cardiac: RRR, No murmur - Respiratory Respiratory: Clear bilaterally - Abdomen Abdomen: No organomegaly, Other (tender mid abdomen, with some distension, and mild percussion tenderness. ). No: Normal bowel sounds (hyperactive) - Female Female : Deferred - Rectal Rectal: Deferred - Back Back: No CVA TTP - Derm Derm: Normal color, Warm and dry - Extremities Extremities: No tenderness to palpate, Normal ROM s pain, No edema, No calf tenderness / cord - Neuro Neuro: Alert and oriented X 3, No motor deficit, Normal speech Eye Opening: Spontaneous Motor: Obeys Commands Verbal: Oriented GCS Score: 15 - Psych Psych: Normal mood, Normal affect Results - Vitals Vitals: Vital Signs - 24 hr 07/14/19 07/14/19 07/14/19 07:13 09:17 10:46 Temperature 36.7 C 36.8 C 36.8 C Heart Rate 123 H 109 H 105 H Respiratory 20 16 16 Rate Blood Pressure 127/74 124/83 H 125/78 O2 Saturation 100 98 99 Oxygen O2 Source Room air - Labs Labs: Laboratory Tests 07/14/19 07/14/19 07/14/19 07:20 07:48 07:48 WBC 6.5 RBC 4.69 Hgb 14.4 Hct 42.5 MCV 90.6 MCH 30.7 MCHC 33.9 RDW 13.4 Plt Count 355 MPV 10.1 Neut # (Auto) 5.0 Lymph # (Auto) 0.8 L [place] # (Auto) 0.5 Eos # (Auto) 0.1 Baso # (Auto) 0.0 Absolute Nucleated RBC 0.00 Nucleated RBC % 0.0 Sodium 140 Potassium 4.1 Chloride 105 Carbon Dioxide 23 Anion Gap 12.0 BUN 14 Creatinine 0.6 Estimated GFR (MDRD) 111 Glucose 111 H Lactic Acid Calcium 10.5 H Magnesium 1.9 Total Bilirubin 0.4 AST 21 ALT 24 Alkaline Phosphatase 136 H Total Protein 8.0 Albumin 4.6 Globulin 3.4 Albumin/Globulin Ratio 1.4 Lipase 23 Urine Color YELLOW Urine Clarity CLEAR Urine pH 7.5 Ur Specific Parsons 1.020 Urine Protein NEGATIVE Urine Glucose (UA) NEGATIVE Urine Ketones NEGATIVE Urine Occult Blood TRACE-INTA Urine Nitrite NEGATIVE Urine Bilirubin NEGATIVE Urine Urobilinogen 0.2 (NORMAL) Ur Leukocyte Esterase TRACE H Urine RBC 0-5 Urine WBC 11-25 H Ur Epithelial Cells RARE Transitional Ur Squamous Epith Cells RARE Squamous Amorphous Sediment Few Urine Bacteria Few Ur Microscopic Review INDICATED Urine Culture Comments INDICATED Urine HCG, Qual NEGATIVE 07/14/19 08:00 WBC RBC Hgb Hct MCV MCH MCHC RDW Plt Count MPV Neut # (Auto) Lymph # (Auto) [place] # (Auto) Eos # (Auto) Baso # (Auto) Absolute Nucleated RBC Nucleated RBC % Sodium Potassium Chloride Carbon Dioxide Anion Gap BUN Creatinine Estimated GFR (MDRD) Glucose Lactic Acid 1.3 Calcium Magnesium Total Bilirubin AST ALT Alkaline Phosphatase Total Protein Albumin Globulin Albumin/Globulin Ratio Lipase Urine Color Urine Clarity Urine pH Ur Specific [place]ons Urine Protein Urine Glucose (UA) Urine Ketones Urine Occult Blood Urine Nitrite Urine Bilirubin Urine Urobilinogen Ur Leukocyte Esterase Urine RBC Urine WBC Ur Epithelial Cells Ur Squamous Epith Cells Amorphous Sediment Urine Bacteria Ur Microscopic Review Urine Culture Comments Urine HCG, Qual - Rads (name of study) abd/pelvic CT Radiology: Prelim report reviewed (findings c/w SBO with transition at ileus around area of prior anastomosis. ), See rad report PD MEDICAL DECISION MAKING - ED course Complexity details: reviewed results, re-evaluated patient (pain improved with meds, but coming back again. ), considered differential, d/w patient, d/w customs consultant (talked with Dr. Cano, who referred to Hospitalist. ) Departure - Departure Disposition: ED Place in Observation Clinical Impression: Small bowel obstruction Abdominal pain Qualifiers: Abdominal location: generalized Qualified Code(s): R10.84 - Generalized abdominal pain Condition: Stable Record reviewed to determine appropriate education?: Yes Discharge Date/Time: 07/14/19 13:30
[2019-07-14] MEDS: SODIUM CHLORIDE FLUSH 0.9% 10 ML SYRINGE IVP SCH ×2 (17:03→23:56)
--- NOTE | 2019-07-14 17:34 | XRAY Report ---
Reason: Bowel obstruction. Procedure Date: 07/14/2019 Accession Number: [id number] / [id number] Procedure: XR - SBFT Challenge Panel CPT Code: Final Report FULL RESULT: EXAM: ABDOMEN RADIOGRAPHY EXAM DATE: 07/14/2019 03:04 PM. CLINICAL HISTORY: Bowel obstruction. COMPARISON: ABDOMEN/PELVIS W 07/14/2019 9:12 AM. TECHNIQUE: 2 supine views. FINDINGS/ IMPRESSION: 1. Contrast is present within a distended stomach, duodenum and possibly the proximal jejunum on these immediate post contrast administration images. Recommend continued imaging for Gastrografin challenge. 2. There is a loop of dilated small bowel in the right upper quadrant of the abdomen consistent with findings of small bowel obstruction on same-day CT. 3. There is a moderate amount of stool within the colon. 4. The urinary bladder is contrast opacified. RADIA
--- NOTE | 2019-07-14 19:14 | XRAY Report ---
Reason: IMAGE 2 GASTRO. CHALLENGE Procedure Date: 07/14/2019 Accession Number: [id number] / [id number] Procedure: XR - No-Charge 1V Abdomen CPT Code: 27110 Final Report FULL RESULT: EXAM: ABDOMEN RADIOGRAPHY EXAM DATE: 07/14/2019 06:56 PM. CLINICAL HISTORY: IMAGE 2 GASTRO. CHALLENGE. COMPARISON: SBFT CHALLENGE PANEL 07/14/2019 2:39 PM ABDOMEN/PELVIS W 07/14/2019 9:12 AM. TECHNIQUE: 1 view. FINDINGS/ IMPRESSION: 1. Serial image of Gastrografin challenge demonstrates oral contrast extending to the ascending and transverse colon. 2. Contrast persists in the stomach and small bowel. 3. Contrast is no longer present in the urinary bladder. 4. Otherwise, no significant change. RADIA
[2019-07-14] MEDS ORDERED: MIRTAZAPINE 15 MG TABLET PO SCH (21:00)
[2019-07-15] MEDS: MORPHINE 2 MG/ML CARPUJECT IVP PRN ×2 (00:01→06:16)
[2019-07-15 05:59] LABS: BASOPHILS % (AUTO) 0.4 %; EOSINOPHILS # (AUTO) 0.3 10^3/uL (0.0-0.7); EOSINOPHILS % (AUTO) 5.9 %; LYMPHOCYTES # (AUTO) 1.1 10^3/uL (1.5-3.5); LYMPHOCYTES % (AUTO) 23.7 %; MEAN CORPUSCULAR HEMOGLOBIN 29.7 pg (27.0-31.0); MEAN PLATELET VOLUME 9.3 fL (7.9-10.8); MONOCYTES # (AUTO) 0.4 10^3/uL (0.0-1.0); MONOCYTES % (AUTO) 9.7 %; NEUTROPHILS # (AUTO) 2.7 10^3/uL (1.5-6.6); NEUTROPHILS % (AUTO) 60.1 %; PLT - PLATELET COUNT 250 10^3/uL (130-450); RED CELL DISTRIBUTION WIDTH 13.6 % (12.0-15.0); WHITE BLOOD COUNT 4.6 x10^3/uL (4.8-10.8)
[2019-07-15] MEDS: SODIUM CHLORIDE FLUSH 0.9% 10 ML SYRINGE IVP PRN ×2 (06:00→12:49)
[2019-07-15 06:13] LABS: CREATININE 0.5 mg/dL (0.4-1.0); MAGNESIUM 2.1 mg/dL (1.7-2.8); PHOSPHORUS 5.5 mg/dL (2.5-4.6)
[2019-07-15] MEDS ORDERED: PANTOPRAZOLE 40 MG VIAL IVP SCH (07:00)
[2019-07-15] MEDS ORDERED: DULoxetine 30 MG CAPSULE PO SCH (09:00)
[2019-07-15] MEDS ORDERED: ENOXAPARIN 40 MG/0.4 ML SYRINGE SUBQ SCH (09:00)
[2019-07-15] MEDS: SODIUM CHLORIDE FLUSH 0.9% 10 ML SYRINGE IVP SCH (09:41)
[2019-07-15] MEDS: LACTATED RINGERS 1,000 ML IV SCH (10:07)
[2019-07-15 11:41] VITALS: BP 105/55
--- NOTE | 2019-07-15 12:39 | Discharge Plan ---
Discharge Plan Problem Reviewed?: Yes Disposition: Home, Self Care Condition: Stable Diet: Soft Activity Restrictions: Activity as Tolerated Shower Restrictions: No (fall precaution) Instruction Topics: Diet Soft Dc, Obstruction Sm Bowel Health Concerns: small bowel obstruction Plan of Treatment: your small bowel obstruction is resolved. you have bowel movement and you tolerate regular diet without abdominal pain, nausea or vomiting. advise you eating smaller portions more often, chewing food well, avoiding large amounts of high-fiber foods, cutting down on caffeine, avoiding tough or stringy food, followup your oncologist as your schedule as well. Care Goals: stabilization and improvement/resolve of your medical conditions Assessment: discussed with you the care plan, you understood. Additional Instructions or Follow Up instructions: you may followup your PCP in one to two weeks, followup your oncologist as your schedule. Should your symptoms return or worsen, you may present ER or call 911 for help. No Smoking: If you smoke, Please STOP! Call for help. Follow-up with: DANNIE SPARROW [Primary Care Provider] -
--- NOTE | 2019-07-15 12:47 | DISCHARGE SUMMARY ---
"Discharge Summary Admit Date: 07/14/19 Discharge Date: 07/15/19 Discharging Provider: David Beckett Primary Care Provider: Dr. Franklin Palma Condition at Discharge: Stable Discharge Disposition: 01 Home, Self Care Discharge Facility Name: home - DIAGNOSES Admission Diagnoses: (1) Small bowel obstruction (2) History of rectal cancer Discharge Diagnoses with Status of Each Condition: (1) Small bowel obstruction resolved. pt had bowel movement. pt tolerate regular diet without nausea, vomiting, or abdominal pain. (2) History of rectal cancer stable/chronic, advise pt followup her oncologist - HPI History of Present Illness: refer from Dr. mendez's HPI on 07/14/2019 This is a 39-year-old female with a past medical history significant for stage III rectal adenocarcinoma who is status post resection, radiation, chemotherapy that was diagnosed in March 2018. She received her oncologic care at [facility] but underwent anterior resection and ilesostomy at [facility] in [place]. She had reversal of her ileostomy in March of this year. She presents today with abdominal pain that began yesterday evening at around 11 PM. She states that she has had 2 prior episodes of bowel obstructions that were treated on an outpatient basis with quick resolution. She states that those times, she would take pain medication and her pain would resolve. She reports this time she took oxycodone at home but her pain persisted. It was quite severe and located over the left upper quadrant. She did not have any nausea or vomiting. She is not passing gas. She reports her last bowel movement was yesterday evening at 8 PM. She denies any chest pain, dyspnea, fevers, chills. She reports she has been doing well prior to yesterday evening. 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 In the emergency department, she underwent a CT of the abdomen and pelvis which showed an obstruction with transition point at the anastomosis site. Given these findings, medicine was consulted for admission - CONSULTS | PROCEDURES Consultations: Dr. Bubba Cano Procedures: no procedure - HOSPITAL COURSE Hospital Course: Patient was admitted for abdominal pain, patient denied having nausea or vomiting, CT scan show patient have small bowel obstruction, patient have history twice of small bowel obstruction, in the hospital patient treated with bowel rest, patient was encourage to ambutation, also patient was consulted with GI surgeon, patient had Gastrografin challenge treatment, after the treatment patient have a bowel movement, patient tolerated regular diet without nausea vomiting or abdominal pain. patient small bowel obstruction is resolved (1) Small bowel obstruction resolved. pt had bowel movement. pt tolerate regular diet without nausea, vomiting, or abdominal pain. (2) History of rectal cancer stable/chronic, advise pt followup her oncologist - ALLERGIES Allergies/Adverse Reactions: Allergies Allergy/AdvReac Type Severity Reaction Status Date / Time No Known Drug Allergies Allergy Verified 07/14/19 07:13 - MEDICATIONS Home Medications: Ambulatory Orders Medication Instructions Recorded Confirmed oxyCODONE [Roxicodone] 5 mg PO Q4-6H PRN #15 tablet 07/07/19 07/14/19 Duloxetine HCl 60 mg PO DAILY 07/14/19 07/14/19 Mirtazapine [Remeron] 15 mg PO HS 07/14/19 07/14/19 - PHYSICAL EXAM AT DISCHARGE General Appearance: positive: No acute distress, Alert. negative: Lethargic Eyes Bilateral: positive: Normal inspection, PERRL, No lid inflammation ENT: positive: ENT inspection nml, Pharynx nml, No signs of dehydration. negative: Purulent nasal drainage Neck: positive: Nml inspection, Thyroid nml, No JVD, Trachea midline. negative: Thyromegaly, Lymphadenopathy (L), Stiff neck, Tracheal deviation Respiratory: positive: Chest non-tender, No respiratory distress, Breath sounds nml. negative: Wheezes, Rales, Rhonchi Cardiovascular: positive: Regular rate & rhythm, No murmur, No gallop. negative: Irregularly irregular, Tachycardia, Systolic murmur, Diastolic murmur Peripheral Pulses: positive: 2+ Abdomen: positive: Non-tender, No organomegaly, Nml bowel sounds, No distention. negative: Tenderness, Guarding, Rebound Back: positive: Nml inspection. negative: CVA tenderness (R), CVA tenderness (L) Skin: positive: Color nml, No rash, Warm, Dry. negative: Cyanosis, Diaphoresis, Pallor Extremities: positive: Non-tender, Full ROM, Nml appearance. negative: Calf tenderness, Ivan's sign/cords Neurologic/Psychiatric: positive: Oriented x3, Motor nml, Sensation nml. negative: Weakness, Sensory loss, Facial droop, Slurred/abnml speech - LABS Result Diagrams: 07/15/19 05:49 07/15/19 05:49 - FOLLOW UP Follow Up: your small bowel obstruction is resolved. you have bowel movement and you tolerate regular diet without abdominal pain, nausea or vomiting. advise you eating smaller portions more often, chewing food well, avoiding large amounts of high-fiber foods, cutting down on caffeine, avoiding tough or stringy food, followup your oncologist as your schedule as well. you may followup your PCP in one to two weeks, followup your oncologist as your schedule. Should your symptoms return or worsen, you may present ER or call 911 for help. - TIME SPENT Time Spent in Discharge (Minutes): 30"
== END 2019-07-15 13:55 | disposition home or self-care (01) ==
LOC: ED 06:58 → MS2 11:39
PROVIDERS: ADMIT Internal Medicine; ATTEND Nurse Practitioner Gerontology
DX: K56.600 Partial intestinal obstruction, unspecified as to cause (principal); Z85.048 Personal history of other malignant neoplasm of rectum, rectosigmoid junction, and anus; Z90.49 Acquired absence of other specified parts of digestive tract; G62.9 Polyneuropathy, unspecified; Z92.21 Personal history of antineoplastic chemotherapy; Z92.3 Personal history of irradiation; F32.9 Major depressive disorder, single episode, unspecified
CPT/HCPCS: 36415; 36556; 74177; 74250; 80048; 80053; 81001; 81025; 83605; 83690; 83735; 84100; 85025; 87086; 96361; 96372; 96374; 96375; 96376; 99284; 99285; A9270; G0378; J1170; J1650; J7120; Q9963; Q9967; 74018; 81003

== ENCOUNTER 2019-08-21 01:41 | Emergency (ER) | payer OTHER ==
--- NOTE | 2019-08-21 01:47 | ED Physician Documentation ---
PD HPI ABD PAIN - Stated complaint Stated Complaint: ABD PX - History obtained from History obtained from: Patient - History of Present Illness Timing - onset: How many hours ago (about 10 hours ago) Timing - duration: Hours Timing - details: Abrupt onset (onst in afternoon of abd cramping pain, nausea, bloating. Similar to prior episodes of SBO. She had minimal liquids and no food since then, but still hurting, so here for eval.), Still present Quality: Cramping, Aching Location: Periumbilical, LLQ Radiation: No: Chest, Lower back, Left flank Improved by: Laying still Worsened by: Eating, Palpation. No: Breathing Associated symptoms: Nausea. No: Fever, Vomiting, Diarrhea, Constipation, Melena Similar symptoms before: Diagnosis (partial SBOs subsequent to rectal cancer, treatment, ileostomy and subsequent re-anastomosis. Has had these resolve without surgery. Hospitalized once, and just Rx in ER 2-3 times.) Review of Systems Constitutional: denies: Fever, Chills Nose: denies: Rhinorrhea / runny nose, Congestion Throat: denies: Sore throat Respiratory: denies: Cough GI: reports: Abdominal Pain, Nausea. denies: Vomiting, Diarrhea : denies: Dysuria, Frequency PD PAST MEDICAL HISTORY - Past Medical History Cardiovascular: None Respiratory: None Neuro: None Endocrine/Autoimmune: None GI: Other (Rectal cancer s/p resection with ileostomy followed by reversal of ileostomy. 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 - Present Medications Home Medications: Ambulatory Orders Medication Instructions Recorded Confirmed Duloxetine HCl 60 mg PO DAILY 07/14/19 08/21/19 Mirtazapine [Remeron] 15 mg PO HS 07/14/19 08/21/19 - Allergies Allergies/Adverse Reactions: Allergies Allergy/AdvReac Type Severity Reaction Status Date / Time No Known Drug Allergies Allergy Verified 08/21/19 01:49 - Social History Does the pt smoke?: No Smoking Status: Former smoker Does the pt drink ETOH?: No Does the pt have substance abuse?: No PD ED PE NORMAL - Vitals Vital signs reviewed: Yes - General General: Alert and oriented X 3, Well developed/nourished, Other (appears uncomfortable due to abd pain) - Neck Neck: Supple, no meningeal sign, No adenopathy - Cardiac Cardiac: RRR, No murmur - Respiratory Respiratory: Clear bilaterally - Abdomen Abdomen: Soft, No organomegaly, Other (increased bowel sounds. Tender mid abd to LLQ area with some distension. Not tense. ) - Female Female : Deferred - Rectal Rectal: Deferred - Back Back: No CVA TTP - Derm Derm: Normal color Results - Vitals Vitals: Vital Signs - 24 hr 08/21/19 08/21/19 08/21/19 01:49 01:51 02:50 Temperature 36.7 C Heart Rate 112 H 112 H 99 Respiratory 18 18 16 Rate Blood Pressure 137/88 H 137/88 H 130/82 H O2 Saturation 97 98 97 08/21/19 08/21/19 04:01 05:59 Temperature Heart Rate 93 88 Respiratory 16 Rate Blood Pressure 118/68 104/67 O2 Saturation 96 99 Oxygen O2 Source Room air - Labs Labs: Laboratory Tests 08/21/19 08/21/19 08/21/19 02:00 02:00 02:00 WBC 6.3 RBC 4.26 Hgb 12.9 Hct 38.9 MCV 91.3 MCH 30.3 MCHC 33.2 RDW 12.6 Plt Count 334 MPV 9.7 Neut # (Auto) 4.5 Lymph # (Auto) 1.1 L [place] # (Auto) 0.5 Eos # (Auto) 0.2 Baso # (Auto) 0.0 Absolute Nucleated RBC 0.00 Nucleated RBC % 0.0 Sodium 137 Potassium 3.8 Chloride 105 Carbon Dioxide 21 Anion Gap 11.0 BUN 14 Creatinine 0.6 Estimated GFR (MDRD) 111 Glucose 90 Lactic Acid 0.7 Calcium 10.0 Total Bilirubin 0.7 AST 23 ALT 37 Alkaline Phosphatase 155 H Total Protein 7.4 Albumin 4.4 Globulin 3.0 Albumin/Globulin Ratio 1.5 Lipase 22 PD MEDICAL DECISION MAKING - ED course Complexity details: reviewed old records, re-evaluated patient (feeling improved with fluids and IV meds. ), considered differential, d/w patient ED course: She asked to be able to rest in the ER for couple of hours to ensure the symptoms have resolved well. This seemed reasonable. She was able to rest here and take sips of water and did not have any recurrence of her symptoms. She feels comfortable heading home at this point. Departure - Departure Disposition: Home, Self Care Clinical Impression: Small bowel obstruction Abdominal pain Qualifiers: Abdominal location: lower abdomen, unspecified Qualified Code(s): R10.30 - Lower abdominal pain, unspecified Condition: Stable Record reviewed to determine appropriate education?: Yes Follow-Up: GUERA ALVARADO, [Primary Care Provider] - Comments: Liquids only initially today and soft mechanical food. Progress diet as able to more normal through the day and into tomorrow. Return if worse symptoms again.
[2019-08-21] MEDS ORDERED: SODIUM CHLORIDE 0.9% 1,000 ML IV STA (02:04)
[2019-08-21] MEDS ORDERED: ONDANSETRON 4 MG/2 ML VIAL IVP STA (02:04)
[2019-08-21] MEDS ORDERED: KETOROLAC 30 MG/ML VIAL IVP STA (02:04)
[2019-08-21] MEDS ORDERED: HYDROmorphone 1 MG/ML CARPUJECT IVP STA (02:04)
[2019-08-21 02:10] LABS: BASOPHILS % (AUTO) 0.3 %; EOSINOPHILS # (AUTO) 0.2 10^3/uL (0.0-0.7); HGB - HEMOGLOBIN 12.9 g/dL (12.0-16.0); LYMPHOCYTES # (AUTO) 1.1 10^3/uL (1.5-3.5); LYMPHOCYTES % (AUTO) 17.8 %; MEAN CORPUSCULAR HEMOGLOBIN 30.3 pg (27.0-31.0); MEAN CORPUSCULAR HGB CONC 33.2 g/dL (32.0-36.0); MEAN CORPUSCULAR VOLUME 91.3 fL (81.0-99.0); MEAN PLATELET VOLUME 9.7 fL (7.9-10.8); MONOCYTES # (AUTO) 0.5 10^3/uL (0.0-1.0); MONOCYTES % (AUTO) 7.4 %; NEUTROPHILS # (AUTO) 4.5 10^3/uL (1.5-6.6); NEUTROPHILS % (AUTO) 71.3 %; PLT - PLATELET COUNT 334 10^3/uL (130-450); RED BLOOD COUNT 4.26 10^6/uL (4.20-5.40); RED CELL DISTRIBUTION WIDTH 12.6 % (12.0-15.0); WHITE BLOOD COUNT 6.3 x10^3/uL (4.8-10.8)
[2019-08-21 02:20] LABS: ALBUMIN 4.4 g/dL (3.2-5.5); ALBUMIN/GLOBULIN RATIO 1.5 (1.0-2.2); BILIRUBIN,TOTAL 0.7 mg/dL (0.2-1.0); CREATININE 0.6 mg/dL (0.4-1.0); TOTAL PROTEIN 7.4 g/dL (6.7-8.2)
[2019-08-21] MEDS ORDERED: oxyCODONE/ACET 5/325 Prepack 4 PO STA (05:54)
[2019-08-21 05:59] VITALS: BP 104/67
== END 2019-08-21 06:08 | disposition home or self-care (01) ==
LOC: ED 01:41
DX: K56.609 Unspecified intestinal obstruction, unspecified as to partial versus complete obstruction (principal); R10.33 Periumbilical pain; R10.32 Left lower quadrant pain; Z85.048 Personal history of other malignant neoplasm of rectum, rectosigmoid junction, and anus; Z87.891 Personal history of nicotine dependence
CPT/HCPCS: 36415; 80053; 83605; 83690; 85025; 96361; 96374; 96375; 99283; 99284; J1170

== ENCOUNTER 2023-04-25 09:22 | Outpatient (CLI) | payer OTHER ==
--- NOTE | 2023-05-04 07:36 | Mammography Report ---
BILATERAL DIGITAL SCREENING MAMMOGRAM 3D/2D: 04/25/2023 CLINICAL: Routine screening. No prior exams were available for comparison. Both breasts are heterogeneously dense, which may obscure small masses (category c / 51-75% glandular tissue). There is a biopsy clip in the right breast. No significant masses, calcifications, or other findings are seen in either breast. IMPRESSION: NEGATIVE There is no mammographic evidence of malignancy. A 1 year screening mammogram is recommended. Based on the Tyrer Cuzick model (a risk assessment model) the patient's lifetime risk is 7.1% and her 10 year risk is 1.1%. According to the ACR, ACS, and NCCN guidelines, an annual breast MRI exam betsy g with mammogram is recommended if the patient's lifetime risk is 20% or greater. This exam was interpreted at Station ID: [id number]. NOTE: For mammograms, a report in lay terms will be sent to the patient. Approximately 15% of breast malignancies will not be visualized mammographically. In the management of a palpable breast mass, a negative mammogram must not discourage biopsy of a clinically suspicious lesion. Electronically Signed By: Eamon mazariegos/[email or web address]:05/03/2023 16:06:38 ACR BI-RADS Category 1: Negative [id number] PARENCHYMAL PATTERN: (D) - The breast(s) demonstrate(s) heterogeneously dense fibroglandular parvictor hugo laureano. BI-RADS CATEGORY: (1) - 1 Mammogram [id number] 1 year screening LATERALITY: (B)
== END 2023-04-25 09:23 | disposition home or self-care (01) ==
LOC: DI.N 09:22
PROVIDERS: ATTEND Internal Medicine
DX: Z12.31 Encounter for screening mammogram for malignant neoplasm of breast (principal); R92.333 Mammographic heterogeneous density, bilateral breasts

== ENCOUNTER 2023-05-17 09:23 | Outpatient (CLI) | payer OTHER ==
[2023-05-17 11:37] LABS: HCT - HEMATOCRIT 42.1 % (37.0-47.0); HGB - HEMOGLOBIN 13.3 g/dL (12.0-16.0); MEAN CORPUSCULAR HEMOGLOBIN 29.6 pg (27.0-31.0); MEAN CORPUSCULAR HGB CONC 31.6 g/dL (32.0-36.0); MEAN CORPUSCULAR VOLUME 93.8 fL (81.0-99.0); MEAN PLATELET VOLUME 10.7 fL (7.9-10.8); RED BLOOD COUNT 4.49 10^6/uL (4.20-5.40); RED CELL DISTRIBUTION WIDTH 13.6 % (12.0-15.0); WHITE BLOOD COUNT 7.1 x10^3/uL (4.8-10.8)
[2023-05-17 11:58] LABS: ESTIMATED AVERAGE GLUCOSE 105 mg/dL (70-100); HEMOGLOBIN A1c% 5.3 % (4.27-6.07)
[2023-05-17 12:00] LABS: ALBUMIN 4.6 g/dL (3.2-5.5); ALBUMIN/GLOBULIN RATIO 1.9 (1.0-2.2); ALKALINE PHOSPHATASE 101 IU/L (42-121); ALT ALANINE AMINOTRANSFERASE 12 IU/L (10-60); AST ASPARTATE AMINOTRANSFERASE 14 IU/L (10-42); BILIRUBIN,TOTAL 0.4 mg/dL (0.2-1.0); BUN - BLOOD UREA NITROGEN 20 mg/dL (6-20); CALCIUM 9.7 mg/dL (8.5-10.3); CARBON DIOXIDE - CO2 28 mmol/L (21-32); CHLORIDE 107 mmol/L (101-111); CHOL/HDL RATIO 2.7 (<4.4); CHOLESTEROL 170 mg/dL; CREATININE 0.7 mg/dL (0.6-1.3); GFR - MDRD 91 (>89); GLUCOSE 93 mg/dL (74-104); HDL CHOLESTEROL 63 mg/dL; LDL CHOLESTEROL,CALCULATED 90 mg/dL; LDL/HDL RATIO 1.4 (<4.4); POTASSIUM 4.5 mmol/L (3.5-4.5); SODIUM 138 mmol/L (135-145); TRIGLYCERIDES 83 mg/dL (48-352); VLDL CHOLESTEROL 17 mg/dL
[2023-05-17 12:12] LABS: THYROID STIMULATING HORMONE 0.68 uIU/mL (0.34-5.60)
== END 2023-05-17 09:24 | disposition home or self-care (01) ==
LOC: LAB.N 09:23
PROVIDERS: ATTEND Family Medicine
DX: C20 Malignant neoplasm of rectum (principal); Z13.6 Encounter for screening for cardiovascular disorders; H18.413 Arcus senilis, bilateral; G89.4 Chronic pain syndrome
CPT/HCPCS: 36415; 80053; 80061; 83036; 83721; 84443; 85027